=== PATIENT | female | born 1990 | race Caucasian/White ===

== ENCOUNTER 2016-10-12 07:01 | Emergency (ER) | payer SELFPAY ==
--- NOTE | ~2016-10-12 | ER ---
ADMIT: 10/12/2016 RM/LOC: ER [facility] MR#: [id number] [address] [id number] PATRICK MAYS [address] [place] [address] Emergency Room Report SEX: F AGE: 26 : 1990 DATE: 10/12/2016 A 26-year-old female comes to the Emergency Department with suicidal ideations, more truthfully depression. Apparently, her roommate had been telling her she was evil and the cause of all the problems in their domicile. She did want to go directly to [facility] for help, but a boss drove her to the Emergency Department here. She appears depressed. See T-sheet for remainder of history and physical. She denied trying to harm herself, had no plans, just wanted to get some help. DIAGNOSIS: Depression. PLAN: At this point, we are trying to get her to [facility] for further evaluation and help. Roverto Menchaca MD/ gela JOB #: [id number] CC: Roverto Menchaca MD, Attending Physician
--- NOTE | 2016-10-13 12:12 | ER ---
ADMIT: 10/12/2016 RM/LOC: ER [facility] MR#: [id number] [address] [address] PATRICK MAYS [address] [place] [address] Emergency Room Report SEX: F AGE: 26 : 1990 DATE: 10/12/2016 ADDENDUM: [facility] would not accept this patient. Therefore, [facility] lab was drawn per request from [facility], and she was subsequently transferred to [facility]. DIAGNOSIS: Depression. Roverto Menchaca MD/ gela JOB #: [id number] CC: Roverto Menchaca MD, Attending Physician Jaz Maloney, Family Physician
--- NOTE | 2016-10-15 09:44 | NUR ---
Received SAD person referral. Attempted to contact pt via phone call. No answer, voice mail message left.
--- NOTE | 2016-10-17 11:16 | NUR ---
Attempted to contact pt to follow up on SAD person referral and give resource information as pt is self pay. No answer, voice mail message left.
--- NOTE | 2016-10-17 12:40 | NUR ---
Received call from pt. States she was just discharged from [facility]. States they started her on some new medications. She is connected with [facility] for a counselor and for medications. Informed pt she needs to apply for the medication assistance program to continue to get the medications at a free/reduced cost. Pt states she is familiar with [facility] and [facility].
== END 2016-10-12 10:25 ==
LOC: ER 07:01
DX: F32.9 Major depressive disorder, single episode, unspecified (principal); F17.210 Nicotine dependence, cigarettes, uncomplicated; Z88.2 Allergy status to sulfonamides; Z88.1 Allergy status to other antibiotic agents; Z88.8 Allergy status to other drugs, medicaments and biological substances